=== PATIENT | male | born 1995 | race American Indian/Alaskan Native ===

== ENCOUNTER 2020-06-02 23:04 | Emergency (ER) | payer OTHER ==
--- NOTE | 2020-06-03 00:21 | XRay Report ---
CHEST PA AND LATERAL VIEWS INDICATION: Shortness of breath. COMPARISON: None. FINDINGS: Support devices: None. Heart: Within normal limits. Lungs/Pleura: No acute pulmonary or pleural findings. IMPRESSION: 1. No acute findings. Signer Name: Julio Doe MD Signed: 06/03/2020 12:17 AM Workstation Name: [id number]
[2020-06-03 00:25] LABS: Hematocrit 42.1 % (35.5-45.6); Hemoglobin 13.7 gm/dl (11.8-15.2); Mean Corpuscular HGB Conc 33 % (32-34); Platelet Count 261 K/mm3 (140-440); Red Blood Count 6.19 M/mm3 (3.65-5.03); Red Cell Distribution Width 15.9 % (13.2-15.2)
[2020-06-03] MEDS ORDERED: FAMOTIDINE 20 MG/2 ML INJ IV ONE (00:28)
[2020-06-03] MEDS ORDERED: SODIUM CHLORIDE 0.9% 1000 ML 1,000 ML IV ONE (00:28)
[2020-06-03] MEDS ORDERED: ONDANSETRON 4 MG/2 ML INJ IV ONE (00:28)
[2020-06-03 00:35] LABS: Alanine Aminotransferase 21 units/L (7-56); Albumin 4.4 g/dL (3.9-5); BUN/Creatinine Ratio 11; Blood Urea Nitrogen 9 mg/dL (9-20); Calcium 9.7 mg/dL (8.4-10.2); Hemolysis Index 5
[2020-06-03 00:40] LABS: Mean Corpuscular Volume 68 fl (84-94)
[2020-06-03 00:42] LABS: Bacteria,Urine 1+ /HPF (Negative); Bilirubin,Urine NEG (Negative); Blood,Urine NEG (Negative); Color,Urine Yellow (Yellow); Mucus,Urine FEW /HPF; Urobilinogen,Urine < 2.0 mg/dL (<2.0)
--- NOTE | 2020-06-03 01:31 | Emergency Department Report ---
ED N/V/D HPI - General Chief complaint: Nausea/Vomiting/Diarrhea Stated complaint: DIARRHEA/BODY PAIN Source: patient Mode of arrival: Ambulatory Limitations: No Limitations - History of Present Illness Initial comments: Patient is a 24-year-old -Citizen Of [place] male with no past medical history presents to the ED with complaint of acute onset persistent diarrhea with nausea and diffuse body aches and pains for the last 4 days after eating cold sandwich from a vending machine at work about 5 days ago. Patient states that the diarrhea has been persistent and that in the last 12 hours he has had more than 6 episodes of watery diarrhea. Patient also complains of mild epigastric pain and lack of appetite. Patient states that no one else at home or at work has had similar symptoms. Patient denies chest pain, shortness of breath, fever, chills, dizziness, syncope, vomiting, sore throat, headache, dysuria, urinary frequency and urgency or headache and testicular pain. MD complaint: nausea, vomiting, diarrhea -: Sudden, days(s) (4) Description of Vomiting: food contents, watery Description of Diarrhea: water Associated Abdominal Pain: No Location: diffuse Radiation: none Severity: moderate Pain Scale: 4 Quality: aching, dull Consistency: intermittent Improves with: none Worsens with: none Context: possible food poisoning Associated Symptoms: denies other symptoms, myalgias, loss of appetite, malaise, nausea/vomiting. denies: chest pain, cough, diaphoresis, fever/chills, headaches, rash, dysuria, shortness of breath, syncope, weakness - Related Data Previous Rx's Medication Instructions Recorded Last Taken Type Dicyclomine [Bentyl] 20 mg PO Q6H PRN #24 tablet 06/03/20 Unknown Rx Famotidine [Pepcid] 20 mg PO BID #40 tablet 06/03/20 Unknown Rx Ondansetron [Zofran Odt] 4 mg PO Q6HR PRN #20 tab.rapdis 06/03/20 Unknown Rx Allergies Allergy/AdvReac Type Severity Reaction Status Date / Time No Known Allergies Allergy Unverified 06/02/20 23:39 ED Review of Systems ROS: Stated complaint: DIARRHEA/BODY PAIN Other details as noted in HPI Constitutional: denies: chills, fever Eyes: denies: eye pain, eye discharge, vision change ENT: denies: ear pain, throat pain Respiratory: denies: cough, shortness of breath, wheezing Cardiovascular: denies: chest pain, palpitations Endocrine: no symptoms reported Gastrointestinal: nausea, diarrhea Genitourinary: denies: urgency, dysuria Musculoskeletal: arthralgia, myalgia. denies: back pain, joint swelling Skin: denies: rash, lesions Neurological: denies: headache, weakness, paresthesias Psychiatric: denies: anxiety, depression Hematological/Lymphatic: denies: easy bleeding, easy bruising ED Past Medical Hx - Past Medical History Previous Medical History?: No - Surgical History Past Surgical History?: No - Social History Smoking Status: Never Smoker Substance Use Type: None - Medications Home Medications: Home Medications Medication Instructions Recorded Confirmed Last Taken Type Dicyclomine [Bentyl] 20 mg PO Q6H PRN #24 tablet 06/03/20 Unknown Rx Famotidine [Pepcid] 20 mg PO BID #40 tablet 06/03/20 Unknown Rx Ondansetron [Zofran Odt] 4 mg PO Q6HR PRN #20 tab.rapdis 06/03/20 Unknown Rx ED Physical Exam - General Limitations: No Limitations General appearance: alert, in no apparent distress - Head Head exam: Present: atraumatic, normocephalic, normal inspection - Eye Eye exam: Present: normal appearance, PERRL, EOMI Pupils: Present: normal accommodation - ENT ENT exam: Present: normal exam, normal orophraynx, mucous membranes moist, TM's normal bilaterally, normal external ear exam - Neck Neck exam: Present: normal inspection, full ROM. Absent: tenderness, lymphadenopathy, thyromegaly - Respiratory Respiratory exam: Present: normal lung sounds bilaterally. Absent: respiratory distress, wheezes, rales, rhonchi, chest wall tenderness, accessory muscle use, decreased breath sounds, prolonged expiratory - Cardiovascular Cardiovascular Exam: Present: normal rhythm, tachycardia, normal heart sounds. Absent: systolic murmur, diastolic murmur, rubs, gallop - GI/Abdominal GI/Abdominal exam: Present: soft, normal bowel sounds. Absent: tenderness, guarding, rebound, hyperactive bowel sounds, hypoactive bowel sounds, organomegaly - Extremities Exam Extremities exam: Present: normal inspection, full ROM, normal capillary refill - Back Exam Back exam: Present: normal inspection, full ROM. Absent: tenderness, CVA tenderness (R), CVA tenderness (L), muscle spasm, paraspinal tenderness, vertebral tenderness - Neurological Exam Neurological exam: Present: alert, oriented X3, CN II-XII intact, normal gait, reflexes normal - Psychiatric Psychiatric exam: Present: normal affect, normal mood - Skin Skin exam: Present: warm, dry, intact, normal color. Absent: rash ED Course Vital Signs 06/02/20 06/03/20 23:36 01:53 Temperature 99.0 F 98.1 F Pulse Rate 101 H 89 Respiratory 20 18 Rate Blood Pressure 111/72 Blood Pressure 116/68 [Left] O2 Sat by Pulse 96 98 Oximetry ED Medical Decision Making - Lab Data Result diagrams: 06/03/20 00:05 06/03/20 00:05 - Medical Decision Making This is a 24-year-old -Citizen Of [place] male with no past medical history presents to the ED with complaint of acute onset persistent diarrhea with nausea and diffuse body aches and pains for the last 4 days after eating cold sandwich from a vending machine at work about 5 days ago. Patient states that the diarrhea has been persistent and that in the last 12 hours he has had more than 6 episodes of watery diarrhea. Patient also complains of mild epigastric pain and lack of appetite. Patient states that no one else at home or at work has had similar symptoms. In the ED, patient is alert and oriented x3 and is not in distress but slightly tachycardic and afebrile in triage. Patient was treated in the ED with normal saline 1 L IV bolus x1, antiemetics Zofran and antacids. On reevaluation, patient's symptoms resolved with medications. Patient has not had any diarrhea episode while in the ED. Lab test results were reviewed and showed mild hyponatremia of 132 mmol/L and mild hypokalemia of 3.4 mmol/L. Patient was discharged home on medications and advised to follow-up with his primary care physician in 5 to 7 days for reevaluation or return to the ED immediately if symptoms get worse. - Differential Diagnosis Gastroenteritis; dehydration; viral syndrome; GERD Critical care attestation.: If time is entered above; I have spent that time in minutes in the direct care of this critically ill patient, excluding procedure time. ED Disposition Clinical Impression: Nausea, vomiting and diarrhea, Viral gastroenteritis Disposition: TO HOME OR SELFCARE Is pt being admited?: No Does the pt Need Aspirin: No Condition: Stable Instructions: Gastroenteritis (ED), Acute Nausea and Vomiting (ED) Additional Instructions: All lab test results are nonactionable except for mild hyponatremia and hypokalemia. Therefore take medications with food, drink plenty of fluids and follow-up with your primary care physician in 5 to 7 days for reevaluation. Return to the ED immediately if symptoms get worse. Prescriptions: Dicyclomine [Bentyl] 20 mg PO Q6H PRN #24 tablet PRN Reason: Abdominal pain Famotidine [Pepcid] 20 mg PO BID #40 tablet Ondansetron [Zofran Odt] 4 mg PO Q6HR PRN #20 tab.rapdis PRN Reason: Nausea Referrals: [facility] [Provider Group] - 3-5 Days Forms: Work/School Release Form(ED) Time of Disposition: 01:29 Print Language: BULGARIAN
[2020-06-03 01:54] VITALS: BP 116/68
[2020-06-03 03:54] LABS: Anisocytosis 1+; Basophils % (Manual) 0 % (0.0-1.8); Hypochromasia 1+; Total Cells Counted 100
[2020-06-03 03:55] LABS: Platelet Estimate Consistent w Auto
== END 2020-06-03 01:53 | disposition home or self-care (01) ==
LOC: ED 23:04
DX: A08.39 Other viral enteritis (principal)
CPT/HCPCS: 36415; 71046; 80053; 81001; 85007; 85025; 96361; 96374; 96375; 99284; J2405; J7030

== ENCOUNTER 2020-07-06 19:17 | Emergency (ER) | payer SELFPAY ==
--- NOTE | 2020-07-06 21:33 | Event Note ---
ED Screening Note Date of service: 07/06/20 Time: 21:33 ED Screening Note: 24-year-old -[place] male presents to the emergency room for a 3-day history of penile discharge and a 2-day history of middle abdominal pain. This initial assessment/diagnostic orders/clinical plan/treatment(s) is/are subject to change based on patients health status, clinical progression and re- assessment by fellow clinical providers in the ED. Further treatment and workup at subsequent clinical providers discretion. Patient/guardian urged not to elope from the ED as their condition may be serious if not clinically assessed and managed. Initial orders include:
[2020-07-07] MEDS ORDERED: LIDOCAINE-MPF (1%) 10 MG/1 ML VIAL 5 ML INFILTRATI ONE (01:15)
[2020-07-07] MEDS ORDERED: AZITHROMYCIN 250 MG TAB PO ONE (01:15)
--- NOTE | 2020-07-07 01:15 | Emergency Department Report ---
ED Abdominal Pain HPI - General Chief Complaint: Urogenital-Male Stated Complaint: DISCHARGE ABD PAINS Time Seen by Provider: 07/07/20 01:08 Source: patient Mode of arrival: Ambulatory Limitations: No Limitations - History of Present Illness Initial Comments: Patient is a 24-year-old F [place] male who is presenting with some lower abdominal pain and penile discharge with dysuria for the past 3 days. Patient had unprotected sexual contact approximately a week ago. Patient denies any fevers chills nausea vomiting or diarrhea. Pain is a 5 out of 10 in severity. Patient also states there is radiating pain into his testicles. - Related Data Previous Rx's Medication Instructions Recorded Last Taken Type Dicyclomine [Bentyl] 20 mg PO Q6H PRN #24 tablet 06/03/20 Unknown Rx Famotidine [Pepcid] 20 mg PO BID #40 tablet 06/03/20 Unknown Rx Ondansetron [Zofran Odt] 4 mg PO Q6HR PRN #20 tab.rapdis 06/03/20 Unknown Rx Allergies Allergy/AdvReac Type Severity Reaction Status Date / Time No Known Allergies Allergy Unverified 06/02/20 23:39 ED Review of Systems ROS: Stated complaint: DISCHARGE ABD PAINS Other details as noted in HPI Comment: All other systems reviewed and negative ED Past Medical Hx - Past Medical History Previous Medical History?: No - Surgical History Past Surgical History?: No - Social History Smoking Status: Never Smoker Substance Use Type: Marijuana - Medications Home Medications: Home Medications Medication Instructions Recorded Confirmed Last Taken Type Dicyclomine [Bentyl] 20 mg PO Q6H PRN #24 tablet 06/03/20 Unknown Rx Famotidine [Pepcid] 20 mg PO BID #40 tablet 06/03/20 Unknown Rx Ondansetron [Zofran Odt] 4 mg PO Q6HR PRN #20 tab.rapdis 06/03/20 Unknown Rx ED Physical Exam - General Limitations: No Limitations General appearance: alert, in no apparent distress - Head Head exam: Present: atraumatic, normocephalic - Eye Eye exam: Present: normal appearance - ENT ENT exam: Present: mucous membranes moist - Neck Neck exam: Present: normal inspection - Respiratory Respiratory exam: Present: normal lung sounds bilaterally. Absent: respiratory distress - Cardiovascular Cardiovascular Exam: Present: regular rate, normal rhythm. Absent: systolic murmur, diastolic murmur, rubs, gallop - GI/Abdominal GI/Abdominal exam: Present: soft, normal bowel sounds - Rectal Rectal exam: Present: deferred - Extremities Exam Extremities exam: Present: normal inspection - Back Exam Back exam: Present: normal inspection - Neurological Exam Neurological exam: Present: alert, oriented X3 - Psychiatric Psychiatric exam: Present: normal affect, normal mood - Skin Skin exam: Present: warm, dry, intact, normal color. Absent: rash ED Course Vital Signs 07/06/20 20:39 Temperature 98.5 F Pulse Rate 77 Respiratory 16 Rate Blood Pressure 136/86 O2 Sat by Pulse 99 Oximetry ED Medical Decision Making - Medical Decision Making Patient additionally was not screened out as an medical emergency secondary to his abdominal pain with some radiation to the groin. On further physical exam the patient has no swelling to the testicles. He has no tenderness and he can walk with a steady gait. Patient will be treated for his penile discharge and urethritis. Patient is at risk for epididymitis as the patient is having some abdominal pain which means his urethritis is likely tracking backwards towards the vas deferens and then testicles. Critical care attestation.: If time is entered above; I have spent that time in minutes in the direct care of this critically ill patient, excluding procedure time. ED Disposition Clinical Impression: Urethritis Disposition: -01 TO HOME OR SELFCARE Is pt being admited?: No Does the pt Need Aspirin: No Condition: Stable Referrals: PAGE SHAH MD [Primary Care Provider] - 3-5 Days Forms: STI Treatment and Prevention Time of Disposition: 01:17
[2020-07-07 01:47] VITALS: BP 128/78
== END 2020-07-07 01:47 | disposition home or self-care (01) ==
LOC: ED 19:17
DX: N34.2 Other urethritis (principal); F12.10 Cannabis abuse, uncomplicated; Z79.899 Other long term (current) drug therapy
CPT/HCPCS: 96372; 99282; J0696

== ENCOUNTER 2021-04-09 11:44 | Emergency (ER) | payer SELFPAY ==
[2021-04-09 13:39] VITALS: BP 118/72
[2021-04-09] MEDS ORDERED: TETANUS,DIPH,PERTUSS(ACELL) VACCINE 0.5 ML SYRINGE IM ONE (13:49)
--- NOTE | 2021-04-09 13:53 | Emergency Department Report ---
ED General Adult HPI - General Chief complaint: Extremity Problem,Nontraumatic Stated complaint: LFT FOOT SORE SWOLLEN Source: patient Mode of arrival: Ambulatory Limitations: No Limitations - History of Present Illness Initial comments: 25-year-old -[place] male patient presents with complaints of left foot pain and drainage x3 weeks. He reports for the past 2 weeks he has been using Lamisil and a antifungal spray, however his symptoms have not improved. He reports pain and itching to the area. He denies any bony pain or swelling. Patient also denies any fever/chills/sweats, loss of sensation in his toes or foot, or difficulty moving his foot or toes. He rates his current pain is 8/10 in severity and states it occurs mainly to touch and with ambulation. He denies any past medical history including HIV and diabetes or other immunocompromising diseases. Patient states he wears boots for work and sweats a great deal Severity scale (0 -10): 10 - Related Data Previous Rx's Medication Instructions Recorded Last Taken Type Dicyclomine [Bentyl] 20 mg PO Q6H PRN #24 tablet 06/03/20 Unknown Rx Famotidine [Pepcid] 20 mg PO BID #40 tablet 06/03/20 Unknown Rx Ondansetron [Zofran Odt] 4 mg PO Q6HR PRN #20 tab.rapdis 06/03/20 Unknown Rx Clotrimazole [Antifungal Ringworm] 14.2 gm TP BID 14 Days #1 cream..g. 04/09/21 Unknown Rx Fluconazole [Diflucan TAB] 200 mg PO QDAY 1 Days #1 tablet 04/09/21 Unknown Rx Ibuprofen [Motrin 800 MG tab] 800 mg PO Q8HR PRN #20 tablet 04/09/21 Unknown Rx Mupirocin [Bactroban 2% OINT] 1 applic TP TID 7 Days #1 tube 04/09/21 Unknown Rx Sulfamethoxazole/Trimethoprim 1 each PO BID 10 Days #20 tablet 04/09/21 Unknown Rx [Bactrim DS TAB] Allergies Allergy/AdvReac Type Severity Reaction Status Date / Time No Known Allergies Allergy Unverified 06/02/20 23:39 ED Review of Systems ROS: Stated complaint: LFT FOOT SORE SWOLLEN Other details as noted in HPI Constitutional: denies: chills, diaphoresis, fever, malaise, weakness Musculoskeletal: denies: joint swelling, arthralgia Skin: change in color Neurological: denies: numbness, paresthesias, abnormal gait ED Past Medical Hx - Past Medical History Previous Medical History?: No - Surgical History Past Surgical History?: No - Social History Substance Use Type: None - Medications Home Medications: Home Medications Medication Instructions Recorded Confirmed Last Taken Type Dicyclomine [Bentyl] 20 mg PO Q6H PRN #24 tablet 06/03/20 Unknown Rx Famotidine [Pepcid] 20 mg PO BID #40 tablet 06/03/20 Unknown Rx Ondansetron [Zofran Odt] 4 mg PO Q6HR PRN #20 tab.rapdis 06/03/20 Unknown Rx Clotrimazole [Antifungal Ringworm] 14.2 gm TP BID 14 Days #1 cream..g. 04/09/21 Unknown Rx Fluconazole [Diflucan TAB] 200 mg PO QDAY 1 Days #1 tablet 04/09/21 Unknown Rx Ibuprofen [Motrin 800 MG tab] 800 mg PO Q8HR PRN #20 tablet 04/09/21 Unknown Rx Mupirocin [Bactroban 2% OINT] 1 applic TP TID 7 Days #1 tube 04/09/21 Unknown Rx Sulfamethoxazole/Trimethoprim 1 each PO BID 10 Days #20 tablet 04/09/21 Unknown Rx [Bactrim DS TAB] ED Physical Exam - General Limitations: No Limitations General appearance: alert, in no apparent distress - Head Head exam: Present: atraumatic, normocephalic - Eye Eye exam: Present: normal appearance - Respiratory Respiratory exam: Absent: respiratory distress - Cardiovascular Cardiovascular Exam: Present: regular rate - Neurological Exam Neurological exam: Present: alert, oriented X3, normal gait - Psychiatric Psychiatric exam: Present: normal affect, normal mood - Skin Skin exam: Present: warm, dry, normal color, other (Maceration of the webbing between the fourth and fifth left foot digit noted with yellowish purulent drainage; no bony tenderness is noted or surrounding cellulitis; patient has full range of motion of the toes and normal pedal pulse). Absent: cyanosis ED Course Vital Signs 04/09/21 04/09/21 13:37 13:57 Temperature 98.5 F Pulse Rate 66 Respiratory 68 H 16 Rate Blood Pressure 118/72 [Right] O2 Sat by Pulse 98 Oximetry ED Medical Decision Making - Medical Decision Making 25-year-old -[place] male patient presents with complaints of left foot pain and drainage x3 weeks. He reports for the past 2 weeks he has been using Lamisil and a antifungal spray, however his symptoms have not improved. He reports pain and itching to the area. He denies any bony pain or swelling. Patient also denies any fever/chills/sweats, loss of sensation in his toes or foot, or difficulty moving his foot or toes. He rates his current pain is 8/10 in severity and states it occurs mainly to touch and with ambulation. He denies any past medical history including HIV and diabetes or other immunocompromising diseases. Patient states he wears boots for work and sweats a great deal Interdigital fungal infection noted with superimposed skin infection. Given patient has failed on 2 topical antifungals, will treat with 1 dose of fluconazole and change antifungal to clotrimazole. Bactrim and mupirocin also added for bacterial coverage. Discussed importance of keeping area as dry as possible and signs and symptoms that should prompt immediate return to the emergency department in detail patient verbalizes understanding. He is to f ollow-up with primary care in 3 days for recheck. He is otherwise well- appearing, his vitals are normal, he is stable for discharge home Critical care attestation.: If time is entered above; I have spent that time in minutes in the direct care of this critically ill patient, excluding procedure time. ED Disposition Clinical Impression: Infection, fungal, left foot, Infection of left foot Disposition: 01 HOME / SELF CARE / HOMELESS Is pt being admited?: No Condition: Stable Instructions: Cellulitis, Adult, Athlete's Foot Prescriptions: Clotrimazole [Antifungal Ringworm] 14.2 gm TP BID 14 Days #1 cream..g. Sulfamethoxazole/Trimethoprim [Bactrim DS TAB] 1 each PO BID 10 Days #20 tablet Mupirocin [Bactroban 2% OINT] 1 applic TP TID 7 Days #1 tube Fluconazole [Diflucan TAB] 200 mg PO QDAY 1 Days #1 tablet Ibuprofen [Motrin 800 MG tab] 800 mg PO Q8HR PRN #20 tablet PRN Reason: pain Referrals: [facility] [Provider Group] - 3-5 Days Forms: Work/School Release Form(ED)
== END 2021-04-09 15:00 | disposition home or self-care (01) ==
LOC: ED 11:44
DX: B35.3 Tinea pedis (principal); Z79.899 Other long term (current) drug therapy
CPT/HCPCS: 90471; 90715; 99282